=== PATIENT | male | born 1980 | race Two or more races ===

== ENCOUNTER 2018-07-29 12:45 | Emergency (ER) | payer SELFPAY ==
--- NOTE | 2018-07-29 12:54 | ER Report ---
History and Physical Time Seen By MD: 12:54 HPI/ROS CHIEF COMPLAINT: Crush injury to right foot HISTORY OF PRESENT ILLNESS: 38-year-old male patient presents to emergency room with complaint of a crush injury to the right foot. Patient states that he was at work yesterday. He had a hydraulic canelo that fell onto the right foot. Patient states that he has been having pain since then. Patient states that he has no numbness or tingling. Patient states he is able to wiggle his toes without any difficulties. Patient states the pain seems to be over the first metatarsal. Patient states the pain is worse with ambulation. Patient states he is not taking any medication for this. He has applied a cool compress to the foot. REVIEW OF SYSTEMS: Respiratory: No cough, no dyspnea. Cardiovascular: No chest pain, no palpitations. Gastrointestinal: No vomiting, no abdominal pain. Musculoskeletal: As noted above Allergies: Coded Allergies: No Known Drug Allergies (Unverified , 07/29/18) Past Medical/Surgical History Patient denies any pertinent medical or surgical history. Reviewed Nurses Notes: Yes Constitutional Vital Sign - Last 24 Hours 07/29/18 07/29/18 12:53 14:19 Temp 98.5 Pulse 81 85 Resp 16 16 B/P (MAP) 128/87 128/82 (97) Pulse Ox 94 95 O2 Delivery Room Air Room Air Physical Exam General Appearance: The patient is alert, has no immediate need for airway protection and no current signs of toxicity. Respiratory: Chest is non tender, lungs are clear to auscultation. Cardiac: regular rate and rhythm Gastrointestinal: Abdomen is soft and non tender, no masses, bowel sounds normal. Musculoskeletal: Neck: Neck is supple and non tender. Extremities have full range of motion and are non tender. Patient has swelling to the medial aspect of the right foot, there is bruising noted at the MTP joint. No numbness or tingling, patient able to wiggle the toes without any difficulties. Patient has good strength with dorsiflexion and plantar flexion. Skin: No rashes or lesions. Patient has abrasion to the top of the foot. DIFFERENTIAL DIAGNOSIS: After history and physical exam differential diagnosis was considered for contusion, fracture, puncture wound. Medical Decision Making EKG/Imaging Imaging EXAMINATION: Right foot series, 3 views 07/29/2018 1:02 PM HISTORY: crush injury to the foot COMPARISON: None FINDINGS: Visualized bony structures are intact and anatomically aligned without fracture or other acute osseous abnormality evident. Soft tissues in the forefoot are swollen. No radiodense foreign body. IMPRESSION: Soft tissue swelling. No acute bony injury. Report Dictated By: Sudeep Guzman MD at 07/29/2018 1:45 PM Report E-Signed By: Sudeep Guzman MD at 07/29/2018 1:47 PM ED Course/Re-evaluation ED Course Patient is medical exam room, history and physical were obtained. Patient is speaking only and the history was obtained via superintendent tests line. Patient did have swelling and bruising to the right foot. Heart and lungs are clear. His done of the right foot which showed no acute fractures. I discussed the findings with the patient through the superintendent tests line. We will go ahead and discharge patient home at this time. He is to ice and elevate his foot. He states how ibuprofen as if her pain. We did put an Kip wrap on to help with reabsorption of the swelling. Patient is follow-up with his primary care provider the week. He is return to emergency room if condition worsens. Patient verbalized understanding and agreement with plan. Decision to Disposition Date: July 29, 2018 Decision to Disposition Time: 14:11 Depart Departure Latest Vital Signs Vital Signs Date Time Temp Pulse Resp B/P (MAP) Pulse Ox O2 Delivery O2 Flow Rate FiO2 07/29/18 14:19 85 16 128/82 (97) 95 Room Air 07/29/18 12:53 98.5 Impression: Primary Impression: Foot contusion Condition: Improved Disposition: HOME OR SELF-CARE Patient Instructions: Contusion in Adults (ED) Additional Instructions: Limit activity by pain. Get plenty of rest. Ice the foot 2-3 times a day for 10-15 minutes. Take Tylenol or Ibuprofen as needed for pain. Follow up with your primary care provider in the next week. Return to the ER if condition worsens. Problem Qualifiers Primary Impression: Foot contusion Encounter type: initial encounter Laterality: right Qualified Codes: S90.31XA - Contusion of right foot, initial encounter AMANDEEP MCNEIL July 29, 2018 12:54
--- NOTE | 2018-07-29 13:51 | RADIOLOGY IMAGING REPORT ---
FACILITY: [facility] PATIENT NAME: Thiago Johns : 1980 MR: [id number] V: [id number] EXAM DATE: ORDERING PHYSICIAN: AMANDEEP MCNEIL TECHNOLOGIST: Location: [facility] [place] Patient: Thiago Johns : 1980 Visit/Account:[id number] Date of Sevice: 07/29/2018 EXAMINATION: Right foot series, 3 views 07/29/2018 1:02 PM HISTORY: crush injury to the foot COMPARISON: None FINDINGS: Visualized bony structures are intact and anatomically aligned without fracture or other a cute osseous abnormality evident. Soft tissues in the forefoot are swollen. No radiodense foreign b brian. IMPRESSION: Soft tissue swelling. No acute bony injury. Report Dictated By: Sudeep Guzman MD at 07/29/2018 1:45 PM Report E-Signed By: Sudeep Guzman MD at 07/29/2018 1:47 PM WSN:[id number]
[2018-07-29 14:19] VITALS: BP 128/82
== END 2018-07-29 14:19 | disposition home or self-care (01) ==
LOC: ER 13:03
DX: S90.31XA Contusion of right foot, initial encounter (principal); W23.0XXA Caught, crushed, jammed, or pinched between moving objects, initial encounter
CPT/HCPCS: 99283